=== PATIENT | female | born 1965 | race Caucasian/White ===

== ENCOUNTER 2021-02-21 18:21 | Emergency (ER) | payer MEDICAID ==
[2021-02-21] MEDS ORDERED: LORazepam 1 MG Tab PO ONE (19:38)
[2021-02-21 20:01] LABS: BUPRENORPHINE,URINE NEGATIVE (NEGATIVE); MARIJUANA,URINE NEGATIVE (NEGATIVE); METHYLENEDIOXYMETHAMP,UR NEGATIVE (NEGATIVE); PHENCYCLIDINE,URINE NEGATIVE (NEGATIVE)
[2021-02-21 20:15] LABS: CHLORIDE,CL 104 mmol/L (98-107); SODIUM,NA 142 mmol/L (136-145)
[2021-02-21 20:16] LABS: ANION GAP 15.5 mmol/L (5-15)
--- NOTE | 2021-02-21 20:44 | EDM.PDOC ---
ED HPI GENERAL MEDICAL PROBLEM - General Stated Complaint: NOT FEELING WELL HIGH BP Time Seen by Provider: 02/21/21 19:29 - History of Present Illness INITIAL COMMENTS - FREE TEXT/NARRATIVE: Teresa is 55 y/o female who presents to the ER with concerns "something is wrong". She apparently has been on the road traveling across country for the last 8 days. She is here tonight because she she is "worried she might be septic". She has been checking her BP at home and thought it was a bit elevated. She also called her provider back in [place] and got a prescription for Cipro because she was worried that she might have a UTI. Complains of a vague chest discomfort, but denies it changes with exercise. No SOB or any other acute sx. Review of Systems - Review of Systems Review Of Systems: See Below Constitutional: Reports: No Symptoms Eyes: Reports: No Symptoms Ears: Reports: No Symptoms Nose: Reports: No Symptoms Mouth/Throat: Reports: No Symptoms Respiratory: Reports: No Symptoms Cardiovascular: Reports: Other (Chest discomfort) GI/Abdominal: Reports: No Symptoms Genitourinary: Reports: Dysuria Musculoskeletal: Reports: No Symptoms Skin: Reports: No Symptoms Neurological: Reports: No Symptoms Psychiatric: Reports: No Symptoms ED EXAM, GENERAL - Physical Exam Exam: See Below General Appearance: Alert, WD/WN, No Apparent Distress (Adult female), Anxious Eye Exam: Bilateral Eye: PERRL Ears: Normal External Exam, Normal Canal, Hearing Grossly Normal, Normal TMs Nose: Normal Inspection, Normal Mucosa Throat/Mouth: Normal Inspection, Normal Lips, Normal Oropharynx, Normal Voice Head: Atraumatic, Normocephalic Neck: Normal Inspection, Supple Respiratory/Chest: No Respiratory Distress, Lungs Clear, Chest Non-Tender Cardiovascular: Normal Peripheral Pulses, Regular Rate, Rhythm, No Edema, No JVD, No Murmur GI/Abdominal: Normal Bowel Sounds, Soft, Non-Tender (Female) Exam: Deferred Rectal (Female) Exam: Deferred Back Exam: Normal Inspection, Full Range of Motion Extremities: Normal Inspection, Normal Range of Motion, No Pedal Edema, Normal Capillary Refill Neurological: Alert, Oriented, CN II-XII Intact, Normal Cognition Psychiatric: Anxious Skin Exam: Warm, Dry, Intact, Normal Color, No Rash Lymphatic: No Adenopathy #1 Interpretation EKG Date: 02/21/21 Time: 19:38 Rhythm: NSR Rate (Beats/Min): 57 [place]: Normal P-Wave: Present QRS: Normal ST-T: Normal QT: Normal Comparison: No Change EKG Interpretation Comments: Sinus Bradycardia Course - Vital Signs Text/Narrative:: 1914 Patient was seen by the UTILITIES AND MAINTENANCE SUPERVISOR. Labs and EKG ordered. UTILITIES AND MAINTENANCE SUPERVISOR suggested Hy droxyzine for the patient to help relax because when UTILITIES AND MAINTENANCE SUPERVISOR inquired about stress in the past few days, the patient's daughter answered "Yes" and proceeded to mention that [place] and there were so many wild dogs walking along the highway and they were afraid they were going to hit one. The patient then became a bit teary-eyed and admitted that her dog was hit a killed by a car and she was having some flashbacks of that event yesterday when she saw the dogs on the highway. Patient then stated "Hydroxyzine does not work for me.". UTILITIES AND MAINTENANCE SUPERVISOR ordered Lorazepam 1mg po x 1 dose. 2034 Labs reviewed. CBC neg, CMP neg, Troponin neg, UA neg, UDS + benzodiazipines; pt then reported to UTILITIES AND MAINTENANCE SUPERVISOR that she also Takes Tamezepam got sleep. She did have some minimal relief from the Lorazepam. UTILITIES AND MAINTENANCE SUPERVISOR discussed seeking care with PCP for daily meds to help with sx. Patient was ready to go home. Written instructions were given and she left the ER in stable condition. - Orders/Labs/Meds Orders: Active Orders 24 hr Category Date Time Status EKG Documentation Completion [RC] STAT Care 02/21/21 19:38 Active Labs: Laboratory Tests 02/21/21 02/21/21 02/21/21 Range/Units 19:20 19:20 19:48 WBC 8.0 (4.0-10.0) x10^3/uL RBC 4.49 (4.00-5.50) x10^6/uL Hgb 13.5 (12.0-16.0) g/dL Hct 40.1 (33.0-47.0) % MCV 89.3 (78.0-93.0) fL MCH 30.1 (26.0-32.0) pg MCHC 33.7 (32.0-36.0) g/dL RDW Coeff of Andrea 13.7 (10.0-15.0) % Plt Count 321 (130-400) x10^3/uL Neut % (Auto) 47.2 L (50.0-80.0) % Lymph % (Auto) 39.1 (25.0-50.0) % [place] % (Auto) 10.1 (2.0-11.0) % Eos % (Auto) 3.0 (0.0-4.0) % Baso % (Auto) 0.6 (0.2-1.2) % Sodium (136-145) mmol/L Potassium (3.5-5.1) mmol/L Chloride (98-107) mmol/L Carbon Dioxide (21-32) mmol/L Anion Gap (5-15) mmol/L BUN (7-18) mg/dL Creatinine (0.55-1.02) mg/dL Est Cr Clr Drug Dosing Estimated GFR (MDRD) Glucose (70-99) mg/dL Lactic Acid (0.4-2.0) mmol/L Calcium (8.5-10.1) mg/dL Corrected Calcium (8.5-10.1) mg/dL Magnesium (1.8-2.4) mg/dL Total Bilirubin (0.2-1.0) mg/dL AST (15-37) U/L ALT (14-59) U/L Alkaline Phosphatase (46-116) U/L Troponin I High Sens (<=51) ng/L Total Protein (6.4-8.2) g/dL Albumin (3.4-5.0) g/dL Globulin Albumin/Globulin Ratio Urine Color Yellow (YELLOW) Urine Appearance Clear (CLEAR) Urine pH 6.5 (5.0-8.0) Ur Specific [place] 1.025 Urine Protein Negative (NEGATIVE) mg/dL Urine Glucose (UA) Negative (NEGATIVE) mg/dL Urine Ketones Negative (NEGATIVE) mg/dL Urine Occult Blood Negative (NEGATIVE) Urine Nitrite Negative (NEGATIVE) Urine Bilirubin Negative (NEGATIVE) Urine Urobilinogen 0.2 (0.2) EU/dL Ur Leukocyte Esterase Negative (NEGATIVE) Urine Opiates Screen Negative (NEGATIVE) Ur Buprenorphine Scrn Negative (NEGATIVE) Ur Oxycodone Screen Negative (NEGATIVE) Urine Methadone Screen Negative (NEGATIVE) Ur Barbituates Screen Negative (NEGATIVE) Ur Phencyclidine Scrn Negative (NEGATIVE) Ur Amphetamines Screen Negative (NEGATIVE) U Methamphetamines Scrn Negative (NEGATIVE) Urine MDMA Screen Negative (NEGATIVE) U Benzodiazepines Scrn Positive H (NEGATIVE) Urine Cocaine Screen Negative (NEGATIVE) U Marijuana (THC) Screen Negative (NEGATIVE) 02/21/21 02/21/21 Range/Units 19:48 19:48 WBC (4.0-10.0) x10^3/uL RBC (4.00-5.50) x10^6/uL Hgb (12.0-16.0) g/dL Hct (33.0-47.0) % MCV (78.0-93.0) fL MCH (26.0-32.0) pg MCHC (32.0-36.0) g/dL RDW Coeff of Andrea (10.0-15.0) % Plt Count (130-400) x10^3/uL Neut % (Auto) (50.0-80.0) % Lymph % (Auto) (25.0-50.0) % [place] % (Auto) (2.0-11.0) % Eos % (Auto) (0.0-4.0) % Baso % (Auto) (0.2-1.2) % Sodium 142 (136-145) mmol/L Potassium 3.5 (3.5-5.1) mmol/L Chloride 104 (98-107) mmol/L Carbon Dioxide 26 (21-32) mmol/L Anion Gap 15.5 H (5-15) mmol/L BUN 10 (7-18) mg/dL Creatinine 0.8 (0.55-1.02) mg/dL Est Cr Clr Drug Dosing TNP Estimated GFR (MDRD) > 60 Glucose 103 H (70-99) mg/dL Lactic Acid 0.6 (0.4-2.0) mmol/L Calcium 9.4 (8.5-10.1) mg/dL Corrected Calcium 9.2 (8.5-10.1) mg/dL Magnesium 2.0 (1.8-2.4) mg/dL Total Bilirubin 0.4 (0.2-1.0) mg/dL AST 14 L (15-37) U/L ALT 19 (14-59) U/L Alkaline Phosphatase 92 (46-116) U/L Troponin I High Sens 12 (<=51) ng/L Total Protein 8.0 (6.4-8.2) g/dL Albumin 4.2 (3.4-5.0) g/dL Globulin 3.8 Albumin/Globulin Ratio 1.11 Urine Color (YELLOW) Urine Appearance (CLEAR) Urine pH (5.0-8.0) Ur Specific [place] Urine Protein (NEGATIVE) mg/dL Urine Glucose (UA) (NEGATIVE) mg/dL Urine Ketones (NEGATIVE) mg/dL Urine Occult Blood (NEGATIVE) Urine Nitrite (NEGATIVE) Urine Bilirubin (NEGATIVE) Urine Urobilinogen (0.2) EU/dL Ur Leukocyte Esterase (NEGATIVE) Urine Opiates Screen (NEGATIVE) Ur Buprenorphine Scrn (NEGATIVE) Ur Oxycodone Screen (NEGATIVE) Urine Methadone Screen (NEGATIVE) Ur Barbituates Screen (NEGATIVE) Ur Phencyclidine Scrn (NEGATIVE) Ur Amphetamines Screen (NEGATIVE) U Methamphetamines Scrn (NEGATIVE) Urine MDMA Screen (NEGATIVE) U Benzodiazepines Scrn (NEGATIVE) Urine Cocaine Screen (NEGATIVE) U Marijuana (THC) Screen (NEGATIVE) Meds: Medications Discontinued Medications Generic Name Dose Route Start Last Admin Trade Name Freq PRN Reason Stop Dose Admin Lorazepam 1 mg 02/21/21 19:38 02/21/21 20:14 Lorazepam 1 Mg Tab PO 02/21/21 19:39 1 mg ONETIME ONE Administration Departure - Departure Time of Disposition: 20:36 Disposition: Home, Self-Care 01 Condition: Good Clinical Impression: Stress reaction - Discharge Information *PRESCRIPTION DRUG MONITORING PROGRAM REVIEWED*: No *COPY OF PRESCRIPTION DRUG MONITORING REPORT IN PATIENT JOSE: No Instructions: Managing Stress, Adult, Mindfulness-Based Stress Reduction, Post- Traumatic Stress Disorder, Adult Referrals: PCP,Not In Area [Primary Care Provider] - Additional Instructions: -Rest tonight -Follow up with your PCP when you return home to discuss further medications for anxiety/panic issues. -Follow up in the ER as needed -Continue your home meds -Your labs and EKG were all normal tonight in the ER. - My Orders Last 24 Hours: My Active Orders 02/21/21 19:38 EKG Documentation Completion [RC] STAT - Assessment/Plan Last 24 Hours: My Active Orders 02/21/21 19:38 EKG Documentation Completion [RC] STAT Assessment:: 1)Stress Reaction Plan: As above
== END 2021-02-21 20:48 | disposition home or self-care (01) ==
LOC: VM.ED 18:21
DX: F43.9 Reaction to severe stress, unspecified (principal)
CPT/HCPCS: 36415; 80053; 80305; 81003; 83605; 83735; 84484; 85025; 93005; 99283; A9270; 93010; 99284